=== PATIENT | female | born 1960 | race Caucasian/White ===

== ENCOUNTER 2019-02-21 21:56 | Emergency (ER) | payer MEDICAID ==
[~2019-02-21] VITALS: Ht 157.5 cm; Wt 69.9 kg
[2019-02-21 22:12] VITALS: Ht 157.5 cm; Wt 69.9 kg
[2019-02-22 00:34] VITALS: BP 103/55
== END 2019-02-22 00:34 | disposition home or self-care (01) ==
LOC: ED 21:56
DX: M54.41 Lumbago with sciatica, right side (principal); E11.9 Type 2 diabetes mellitus without complications
CPT/HCPCS: J1885; J2270; Q0162

== ENCOUNTER 2019-08-12 01:26 | Inpatient (IN) | payer MEDICAID ==
[~2019-08-12] VITALS: Ht 162.6 cm; Wt 68.5 kg
[2019-08-12 01:30] VITALS: Ht 162.6 cm; Wt 68.5 kg
--- NOTE | 2019-08-12 01:31 | NUR ---
EKG IN PROGRESS IN TRIAGE.
--- NOTE | 2019-08-12 01:41 | NUR ---
CM AND [address] PT A&0X4, SPEAKING FULL CLEAR SENTENCES. PT BREATHING EVEN AND UNLABORED. AWAITING MSE. WILL CONTINUE TO MONITOR.
--- NOTE | 2019-08-12 01:51 | NUR ---
PT AMBULATED TO RESTROOM WITH STEADY GAIT TO PROVIDE URINE SAMPLE.
[2019-08-12 02:26] LABS: BASOPHIL % 0.3 % (0-2); PLATELET COUNT 317 x10^3mcL (130-400)
[2019-08-12 02:28] LABS: CALCIUM 8.7 mg/dL (8.5-10.1); CARBON DIOXIDE 30.6 mmol/L (21-32); CHLORIDE SERUM 101 mmol/L (98-107); CREATININE SERUM 0.5 mg/dL (0.6-1.0); GFR1 > 60 mL/min; GLUCOSE SERUM 142 mg/dL (74-106); RED CELL DISTRIBUTION WIDTH 14.8 % (11.5-14.5); SODIUM SERUM 138 mmol/L (136-145)
[2019-08-12 02:34] LABS: ALBUMIN 3.6 g/dL (3.4-5.0); ALKALINE PHOSPHATASE 55 U/L (46-116); ALT/SGPT 19 U/L (14-59); AST/SGOT 11 U/L (15-37); BILIRUBIN TOTAL 0.27 mg/dL (0.20-1.00); LIPASE 89 IU/L (73-393); TOTAL PROTEIN, SERUM 7.4 g/dL (6.4-8.2)
--- NOTE | 2019-08-12 03:11 | NUR ---
MD NESBITT AT BEDSIDE SPEAKING WITH PT ABOUT PLAN OF CARE.
[2019-08-12] MEDS ORDERED: METFORMIN HYDR500 M1 PO (03:17)
--- NOTE | 2019-08-12 03:42 | NUR ---
REPORT GIVEN TO HUONG LAMAS.
--- NOTE | 2019-08-12 03:43 | NUR ---
PT TRANSFERED TO TELE AT THIS TIME. PT BREATHING EVEN AND UNLABORED. PT BREATHING EVEN AND UNLABORED. PT VERBALIZED UNDERSTANDING OF PLAN OF CARE. PT TRANSFERED VIA [place] BY MYSELF AND NOEMI EMT. PT AMBULATED FROM ED GURNEY TO BED WITH STEADY GAIT. HUONG LAMAS AND PLASTERING SUPERVISOR AT BEDSIDE. HUONG RN TO ASSUME FURTHER CARE OF PT AT THIS TIME.
[2019-08-12 03:58] VITALS: BP 129/61
[2019-08-12 04:01] LABS: CHOLESTEROL/HDL RATIO 4.3
--- NOTE | 2019-08-12 04:28 | NUR ---
ADMITTED PATIENT FROM ED WITH CHEST PAIN,PT WAS RECIEVED TO BED AND MADE COMFORTABLE IN BED.ON INITIAL ASSESSMENT PATIENT IS AAO REG RESP NO SOB,PT HAS HL TO THE RT AC SITE PATENT AND INTACT,ABDO IS SOFT WITH ACTIVE BOWEL SOUNDS.PT ON TELE MONITOR AND IN NSR NO ECTOPY SEEN AT THIS TIME. PT WAS SEEN BY THE RESIDENT,PT HAD EIPSODE OF BURNING IN THE CHEST LIKE ACID REFLUX PER THE RESIDENT,RESIDENT ORDER TO GIVE SOME TUMS,PT WAS ORIENTED TO THE CALL IGHT BED CONTROL AND TELE MONITOR,BED WAS PUT IN LOW POSIITON AND LOCKED,CALL LIGHT EASY TO REACHED AND WILL CONTINUE TO MONITOR.
--- NOTE | 2019-08-12 04:34 | NUR ---
TUMS I TAB GIVEN ORDER AND PATIENT RSTING AT THIS TIME,WILL CONTINUE TO MONITOR.
[2019-08-12 05:38] VITALS: BP 138/68
--- NOTE | 2019-08-12 07:30 | NUR ---
RECEIVED PT FROM [employer] FABRICATOR RN. Kaila/ALEXX. TELE#8. DENIES CHEST PAIN/PRESSURE AT THIS TIME. RESPIRATIONS EQUAL AND UNLABORED ON RA. DENIES SOB. PT DENIES ANY PAIN AT THIS TIME. PT STATES EPIGASTRIC PAIN HAS IMPROVED. PT DENIES ANY N/V. IV TO RAC SALINE LOCKED. NO REDNESS OR SWELLING NOTED. WILL CONTINUE TO MONITOR. CALL LIGHT IN REACH. BED IN LOWEST POSITION.
--- NOTE | 2019-08-12 09:21 | NUR ---
PT SITTING UP IN BED. NO ACUTE RESP DISTRESS NOTED ON RA. PT DENIES ANY CHEST PAIN/PRESSURE AT THIS TIME. BLOOD PRESSURE CHECKED WAS 91/42, HELD PT LISINOPRIL, WILL NOTIFY DR. YOUNG. PT DENIES ANY N/V. WILL CONTINUE TO MONITOR. CALL LIGHT IN REACH. BED IN LOWEST POSITION.
[2019-08-12 09:52] VITALS: BP 102/40
--- NOTE | 2019-08-12 11:34 | NUR ---
PT SITTING UP IN BED. NO ACUTE RESP DISTRESS NOTED ON RA. PT DENIES ANY CHEST PAIN/PRESSURE AT THIS TIME. BLOOD SUGAR CHECKED WAS 138. NO COVERAGE NEEDED. IV TO RAC SALINE LOCKED. NO REDNESS OR SWELLING NOTED. WILL CONTINUE TO MONITOR. CALL LIGHT IN REACH. BED IN LOWEST POSITION.
[2019-08-12 12:59] VITALS: BP 115/63
--- NOTE | 2019-08-12 15:44 | NUR ---
Discount pharmacy card and list to low cost medical clinics given to patient by Rocky Aguirre.
--- NOTE | 2019-08-12 17:23 | NUR ---
PT SITTING UP IN BED. NO ACUTE RESP DISTRESS NOTED ON RA. PT DENIES ANY CHEST PAIN/PRESSURE AT THIS TIME. PT DENIES ANY N/V. BLOOD SUGAR CHECKED WAS 124. NO COVERAGE NEEDED. PT C/O HEADACHE. MEDICATED PER EMAR. WILL CONTINUE TO MONITOR. CALL LIGHT IN REACH. BED IN LOWEST POSITION.
[2019-08-12 17:34] VITALS: BP 105/50
--- NOTE | 2019-08-12 20:06 | NUR ---
PT RECIEVED AAO REG RESP NO SOB V/S STABLE,PT RESTING AT THIS TIME,NO PAIN REPORTED AT THIS TIME,KEPT CLEAN AND DRY TO TOUCH,CALL LIGHT EASY REACHED AND WILL CONTINUE TO MONITOR.
[2019-08-12 20:31] VITALS: BP 108/51
--- NOTE | 2019-08-12 20:35 | NUR ---
PT WANT TO GO HOME AGAINTS MEDICAL ADVICE,WILL CONTINUE TO MONITOR.
--- NOTE | 2019-08-12 20:39 | NUR ---
PT LEFT THE HOSPITAL IN STABLE CONDITION AND WILL CONTINUE TO MONITOR.DR QUINTANA EXPALIN THE IMPORTANCE OF THE THAT AND STILL WANT TO GO HOME AND WILL HOME IN STABLE,PT WALK OUT BY HERSELF.
== END 2019-08-12 20:39 | disposition left against medical advice (07) | DRG 243 ==
LOC: ED 01:26 → MU 03:20 → DU 03:20 → MU 15:06
PROVIDERS: ADMIT General Practice
DX: K21.9 Gastro-esophageal reflux disease without esophagitis (principal); E11.65 Type 2 diabetes mellitus with hyperglycemia; E78.5 Hyperlipidemia, unspecified; R71.0 Precipitous drop in hematocrit; Z53.21 Procedure and treatment not carried out due to patient leaving prior to being seen by health care provider; Z79.84 Long term (current) use of oral hypoglycemic drugs; Z83.3 Family history of diabetes mellitus; Z79.899 Other long term (current) drug therapy
CPT/HCPCS: 82962; 83880; G0378; Q0092

== ENCOUNTER 2020-03-01 11:56 | Emergency (ER) | payer MEDICAID, SELFPAY ==
[~2020-03-01] VITALS: Ht 162.6 cm; Wt 68.0 kg
[~2020-03-01 11:56] MED LIST: METFORMIN HYDR500 M1 PO
[2020-03-01 12:08] VITALS: Ht 162.6 cm; Wt 68.0 kg
[2020-03-01 13:02] VITALS: BP 103/79
== END 2020-03-01 13:02 | disposition home or self-care (01) ==
LOC: ED 11:56
DX: U07.1 COVID-19 (principal); E11.9 Type 2 diabetes mellitus without complications; R30.0 Dysuria; Z98.890 Other specified postprocedural states
CPT/HCPCS: Q0092; U0003-CS